=== PATIENT | female | born 1990 | race American Indian/Alaskan Native ===

== ENCOUNTER 2017-02-24 08:54 | Day surgery (SDC) | payer BC, MEDICAID ==
[2017-02-24] MEDS ORDERED: LACTATED RINGERS 1,000 ML IV SCH (09:00)
--- NOTE | 2017-02-24 09:06 | History and Physical Report ---
History of Present Illness Date of examination: 02/24/17 History of present illness: 27 yobf with missed diagnosed by serial ultrasounds and Bhg Past History Past Medical History: hypertension Past Surgical History: ( x2 ), Other (D&C x2) Social history: . denies: smoking, alcohol abuse, prescription drug abuse Family history: hypertension Medications and Allergies Allergies Allergy/AdvReac Type Severity Reaction Status Date / Time No Known Allergies Allergy Verified 02/22/17 17:24 Home Medications Medication Instructions Recorded Confirmed Last Taken Type Lisinopril/Hydrochlorothiazide 1 each PO DAILY 02/22/17 02/22/17 Unknown History [Zestoretic 20-12.5 mg] Exam - Constitutional General appearance: Present: no acute distress - Respiratory Respiratory effort: normal - Cardiovascular Rhythm: regular - Extremities Extremities: pulses symmetrical, No edema - Abdominal General gastrointestinal: Present: soft, non-tender Female genitourinary: Present: normal - Rectal Rectal Exam: deferred - Integumentary Integumentary: Present: clear, warm, dry - Musculoskeletal Musculoskeletal: strength equal bilaterally - Psychiatric Psychiatric: appropriate mood/affect, intact judgment & insight - Neurologic Neurologic: moves all extremities Assessment and Plan - Patient Problems (1) Missed Current Visit: Yes Status: Acute Plan to address problem: Diagnosis explained to patient . Questions answered. Medical and surgical treatment options discussed Patient desires definitive treatment Patient desires D&C Discussed risk of surgery including infection, bleeding and risk of perforating her uterus. Questions answered. Patient understands and desires to proceed (2) Hypertension Current Visit: Yes Status: Acute Qualifiers: Hypertension type: essential hypertension Qualified Code(s): I10 - Essential (primary) hypertension
[2017-02-24 09:42] LABS: Hematocrit 35.9 % (30.3-42.9); Hemoglobin 12.1 gm/dl (10.1-14.3)
--- NOTE | 2017-02-24 09:51 | Anesthesia Consultation ---
Anesthesia Consult and Med Hx Date of service: 02/24/17 - Airway Anesthetic Teeth Evaluation: Good ROM Head & Neck: Adequate Mental/Hyoid Distance: Adequate Mallampati Class: Class II Intubation Access Assessment: Probably Good - Pulmonary Exam CTA: Yes - Cardiac Exam Cardiac Exam: RRR - Pre-Operative Health Status ASA Pre-Surgery Classification: ASA2 Proposed Anesthetic Plan: General - Pulmonary Hx Asthma: No - Cardiovascular System Hx Hypertension: Yes (since 09/2016) - Central Nervous System Hx Seizures: No Hx Psychiatric Problems: No - Endocrine Hx Renal Disease: No Hx Hypothyroidism: No Hx Hyperthyroidism: No - Hematic Hx Anemia: No Hx Sickle Cell Disease: No - Other Systems Hx Alcohol Use: Yes (occas) Hx Cancer: No
--- NOTE | 2017-02-24 09:51 | Anesthesia Day of Surgery ---
Anesthesia Day of Surgery - Day of Surgery Patient Examined: Yes Patient H&P Reviewed: Yes Patient is NPO: Yes
[2017-02-24] MEDS ORDERED: VERSED IV NR (10:00)
[2017-02-24] MEDS ORDERED: PEPCID PO NR (10:00)
[2017-02-24] MEDS ORDERED: METHERGINE IM ONE ×2 (10:27→11:33)
[2017-02-24] MEDS ORDERED: SILVER NITRATE TP ONE ×2 (10:27→11:32)
[2017-02-24] MEDS ORDERED: DIPRIVAN 10 MG/ML IV ONE (10:35)
[2017-02-24] MEDS ORDERED: SUBLIMAZE ONE (10:36)
[2017-02-24] MEDS ORDERED: XYLOCAINE MPF 2% ONE (10:36)
[2017-02-24] MEDS ORDERED: NACL 0.9% IR ONE (10:53)
--- NOTE | 2017-02-24 11:19 | Short Stay Summary ---
Short Stay Documentation - History H&P: dictated Past Medical History: hypertension Past Surgical History: ( x2 ), Other (D&C x2) Social history: , no smoking, no alcohol abuse, no prescription drug abuse - Allergies and Medications Current Medications: Allergies No Known Allergies Allergy (Verified 02/22/17 17:24) Home Medications Medication Instructions Recorded Confirmed Last Taken Type Lisinopril/Hydrochlorothiazide 1 each PO DAILY 02/22/17 02/22/17 Unknown History [Zestoretic 20-12.5 mg] Doxycycline [Vibramycin CAP] 100 mg PO Q12HR #14 capsule 02/24/17 Unknown Rx Ibuprofen [Motrin 600 MG tab] 800 mg PO Q6H PRN #30 tablet 02/24/17 Unknown Rx Methylergonovine [Methergine] 0.2 mg PO Q8HR #7 tablet 02/24/17 Unknown Rx oxyCODONE /ACETAMINOPHEN [Percocet 1 - 2 tab PO Q4H PRN #30 tablet 02/24/17 Unknown Rx 5/325 mg] Active Medications Famotidine (Pepcid) 20 mg PO PREOP NR Stop: 02/24/17 23:59 Last Admin: 02/24/17 10:12 Dose: 20 mg Lactated Ringer's (Lactated Ringers) 1,000 mls @ 150 mls/hr IV DIRECT INDIGO Last Admin: 02/24/17 09:51 Dose: 150 mls/hr Midazolam HCl (Versed) 2 mg IV PREOP NR Stop: 02/24/17 23:59 Last Admin: 02/24/17 10:12 Dose: 2 mg - Physical exam Extremities: pulses symmetrical, No edema - Brief post op/procedure progress note Date of procedure: 02/24/17 (see dictated op note) Condition: stable - Hospital course Hospital course: Patient was admitted underwent the above him procedure without any complications. Patient will be discharged with follow-up in office in 1-2 weeks for postop check. - Disposition Condition at discharge: Good Disposition: DC-01 TO HOME OR SELFCARE - Discharge Diagnoses (1) Missed Status: Acute (2) Hypertension Status: Acute Qualifiers: Hypertension type: essential hypertension Qualified Code(s): I10 - Essential (primary) hypertension Short Stay Discharge Plan Activity: advance as tolerated Diet: regular Follow up with: SAMIRA BURNETT MD [Primary Care Provider] - 7 Days Prescriptions: Methylergonovine [Methergine] 0.2 mg PO Q8HR #7 tablet Ibuprofen [Motrin 600 MG tab] 800 mg PO Q6H PRN #30 tablet PRN Reason: Pain oxyCODONE /ACETAMINOPHEN [Percocet 5/325 mg] 1 - 2 tab PO Q4H PRN #30 tablet PRN Reason: Pain, Moderate Doxycycline [Vibramycin CAP] 100 mg PO Q12HR #14 capsule
[2017-02-24] MEDS ORDERED: MOTRIN PO PRN (11:22)
[2017-02-24] MEDS ORDERED: PERCOCET 5/325 PO PRN (11:23)
--- NOTE | 2017-02-24 11:32 | Post Anesthesia Evaluation ---
- Post Anesthesia Evaluation Patient Participated: Yes Airway Patent: Yes Stable Respiratory Function: Yes Temp > 96.8F: Yes Pain Manageable: Yes Adequeate Hydration: Yes Anesthesia Complications: No Block Receding Appropriately: Not Applicable
[2017-02-24 12:19] VITALS: BP 119/87
[2017-02-24] MEDS ORDERED: ZOFRAN IV NR (12:51)
[2017-02-24] MEDS ORDERED: NACL 0.9% 1000 ML 1,000 ML ONE (12:53)
[2017-02-24] MEDS ORDERED: NACL 0.9% 1000 ML 1,000 ML IV SCH (14:00)
--- NOTE | 2017-03-01 14:27 | Operative Report ---
Operative Report Operative Report: Date of procedure: 02/24/2017 Pre-operative diagnosis: Missed Post-operative diagnosis: Same Procedure name(s): Suction dilatation and curettage Surgeon: Carson Darnell MD Journalism Internship: [] Anesthesia: General EBL: 50 mL Complications: None Findings: A small amount of tissue consistent with products of conception Specimen(s): Uterine contents Procedure: The patient was brought operating room where general anesthesia was induced without difficulty. Patient was placed in dorsal lithotomy position prepped and draped in the usual sterile manner. Rubber catheter was used to empty her bladder. Speculum placed in the vagina. Tenaculum was placed at 12: 00. The cervix was dilated progressively with Hegar dilators. A 10 mm suction catheter was placed through the cervical os. Several passes of the suction catheter removed the uterine contents. General curettage was done with a banjo curettte. On until a gritty sensation was felt throughout the uterine cavity. Further suction with the suction curettage revealed no further products. All instruments were removed patient was hemostatic. She was awakened in the operating room and accompanied to recovery room in good condition.
== END 2017-02-24 09:00 | disposition home or self-care (01) ==
LOC: OR 08:54
PROVIDERS: ATTEND Obstetrics & Gynecology
DX: O02.1 Missed abortion (principal); I10 Essential (primary) hypertension; Z98.890 Other specified postprocedural states; Z79.899 Other long term (current) drug therapy; Z72.89 Other problems related to lifestyle
CPT/HCPCS: 36415; 59820; 84132; 85014; 85018; 88305; J2210; J2250; J2405; J2704; J3010; J7030; J7120

== ENCOUNTER 2017-05-02 12:31 | Emergency (ER) | payer BC, MEDICAID ==
[2017-05-02 13:41] LABS: Basophils % (Auto) 0.7 % (0.0-1.8); Eosinophils % (Auto) 2.7 % (0.0-4.3); Hematocrit 38.9 % (30.3-42.9); Hemoglobin 12.6 gm/dl (10.1-14.3); Mean Corpuscular HGB Conc 32 % (30-34); Mean Corpuscular Hemoglobin 27 pg (28-32); Mean Corpuscular Volume 83 fl (79-97); Platelet Count 241 K/mm3 (140-440); Red Cell Distribution Width 12.5 % (13.2-15.2); White Blood Count 3.8 K/mm3 (4.5-11.0)
[2017-05-02 13:59] LABS: Anion Gap 18 mmol/L; BUN/Creatinine Ratio 10; Blood Urea Nitrogen 6 mg/dL (7-17); Calcium 8.7 mg/dL (8.4-10.2); Carbon Dioxide 22 mmol/L (22-30); Chloride 104.2 mmol/L (98-107); Glucose 84 mg/dL (65-100); Potassium 3.8 mmol/L (3.6-5.0); Sodium 140 mmol/L (137-145)
--- NOTE | 2017-05-02 23:56 | Emergency Department Report ---
ED General Adult HPI - General Chief complaint: Chest Pain Stated complaint: HIGH BP/HOT FLASHES Time Seen by Provider: 05/02/17 23:44 Source: patient, RN notes reviewed, old records reviewed Mode of arrival: Ambulatory Limitations: No Limitations - History of Present Illness Initial comments: This is a 27-year-old female, the patient is previously known to this provider. She is a past medical history of hypertension, and can't remember the name of her primary care doctor. She has an upper extremity implanon control implant. The patient presents to the ER with complaint of "fullness" and "heat " in her bilateral ears, a sensation of feeling "shaky", and "heavy breathing." There is no leg pain, there is no leg swelling, no recent trips greater than 4 hours, and no recent hospital admissions. The patient endorses compliance with her medications, denies aspirin use and denies cocaine use. There is no family history of heart disease, DVT or pulmonary embolus that she is aware of. She mentioned left-sided central chest pressure/"twitching", which did not radiates to the back, arms and neck, was not associated with vomiting, shortness of breath or diaphoresis. Her symptoms started hours ago, they have been resolved for hours, and he did not have exacerbating or relieving factors. -: Gradual Location: chest Severity scale (0 -10): 0 Improves with: none Worsens with: none Associated Symptoms: chest pain, loss of appetite, malaise, weakness. denies: confusion, cough, diaphoresis, fever/chills, shortness of breath, syncope - Related Data Home Medications Medication Instructions Recorded Confirmed Last Taken Lisinopril/Hydrochlorothiazide 1 each PO DAILY 02/22/17 02/22/17 Unknown [Zestoretic 20-12.5 mg] Previous Rx's Medication Instructions Recorded Last Taken Type Doxycycline [Vibramycin CAP] 100 mg PO Q12HR #14 capsule 02/24/17 Unknown Rx Ibuprofen [Motrin 600 MG tab] 800 mg PO Q6H PRN #30 tablet 02/24/17 Unknown Rx Methylergonovine [Methergine] 0.2 mg PO Q8HR #7 tablet 02/24/17 Unknown Rx oxyCODONE /ACETAMINOPHEN [Percocet 1 - 2 tab PO Q4H PRN #30 tablet 02/24/17 Unknown Rx 5/325 mg] Allergies Allergy/AdvReac Type Severity Reaction Status Date / Time No Known Allergies Allergy Verified 02/22/17 17:24 ED Review of Systems ROS: Stated complaint: HIGH BP/HOT FLASHES Other details as noted in HPI Constitutional: malaise, weakness. denies: fever ENT: congestion. denies: throat pain Respiratory: denies: cough Cardiovascular: chest pain Gastrointestinal: denies: vomiting Genitourinary: denies: dysuria Musculoskeletal: arthralgia, myalgia Neurological: weakness Psychiatric: anxiety ED Past Medical Hx - Past Medical History Previous Medical History?: Yes Hx Hypertension: Yes (since 09/2016) Hx Diabetes: No Hx Deep Vein Thrombosis: No Hx Renal Disease: No Hx Sickle Cell Disease: No Hx Headaches / Migraines: Yes (migraines) Hx Seizures: No Hx Asthma: No Hx HIV: No - Surgical History Past Surgical History?: Yes Additional Surgical History: x 2. d&c - Feb 2017 - Social History Smoking Status: Never Smoker Substance Use Type: Alcohol - Medications Home Medications: Home Medications Medication Instructions Recorded Confirmed Last Taken Type Lisinopril/Hydrochlorothiazide 1 each PO DAILY 02/22/17 02/22/17 Unknown History [Zestoretic 20-12.5 mg] Doxycycline [Vibramycin CAP] 100 mg PO Q12HR #14 capsule 02/24/17 Unknown Rx Ibuprofen [Motrin 600 MG tab] 800 mg PO Q6H PRN #30 tablet 02/24/17 Unknown Rx Methylergonovine [Methergine] 0.2 mg PO Q8HR #7 tablet 02/24/17 Unknown Rx oxyCODONE /ACETAMINOPHEN [Percocet 1 - 2 tab PO Q4H PRN #30 tablet 02/24/17 Unknown Rx 5/325 mg] ED Physical Exam - General Limitations: No Limitations General appearance: alert, in no apparent distress - Head Head exam: Present: atraumatic, normocephalic - Eye Eye exam: Present: normal appearance, PERRL, EOMI. Absent: nystagmus - ENT ENT exam: Present: normal exam, normal orophraynx, mucous membranes moist, TM's normal bilaterally, normal external ear exam - Neck Neck exam: Present: normal inspection, full ROM. Absent: tenderness, meningismus - Respiratory Respiratory exam: Present: normal lung sounds bilaterally. Absent: respiratory distress, wheezes, rales, rhonchi, stridor, chest wall tenderness, accessory muscle use, decreased breath sounds, prolonged expiratory - Cardiovascular Cardiovascular Exam: Present: regular rate, normal rhythm, normal heart sounds. Absent: bradycardia, tachycardia, irregular rhythm, systolic murmur, diastolic murmur, rubs, gallop - GI/Abdominal GI/Abdominal exam: Present: soft, normal bowel sounds. Absent: distended, tenderness, guarding, rebound, rigid, pulsatile mass - Extremities Exam Extremities exam: Present: normal inspection, full ROM, normal capillary refill. Absent: pedal edema, joint swelling, calf tenderness - Back Exam Back exam: Present: normal inspection, full ROM. Absent: tenderness, CVA tenderness (R), CVA tenderness (L), muscle spasm, paraspinal tenderness, vertebral tenderness - Neurological Exam Neurological exam: Present: alert, oriented X3, normal gait, other (Extraocular movements intact. Tongue midline. No facial droop. Facial sensation intact to light touch in the V1, V2, V3 distribution bilaterally. 5 and 5 strength in 4 extremities.. Sensation is intact to light touch in 4 extremities.). Absent : motor sensory deficit - Psychiatric Psychiatric exam: Present: anxious - Skin Skin exam: Present: warm, dry, intact, normal color. Absent: rash ED Course Vital Signs 05/02/17 05/02/17 05/02/17 13:06 22:44 23:00 Temperature 98.6 F Pulse Rate 104 H 84 64 Respiratory 18 19 14 Rate Blood Pressure 148/106 146/97 Blood Pressure [Left] O2 Sat by Pulse 100 99 Oximetry 05/02/17 23:28 Temperature 97.8 F Pulse Rate 67 Respiratory 16 Rate Blood Pressure Blood Pressure 145/101 [Left] O2 Sat by Pulse 100 Oximetry ED Medical Decision Making - Lab Data Result diagrams: 05/02/17 13:18 05/02/17 13:18 Vital Signs 05/02/17 05/02/17 13:06 23:28 Temperature 98.6 F 97.8 F Pulse Rate 104 H 67 Respiratory 18 16 Rate Blood Pressure 148/106 Blood Pressure 145/101 [Left] O2 Sat by Pulse 100 100 Oximetry Lab Results 05/02/17 05/02/17 05/02/17 Range/Units 13:18 13:18 13:18 WBC 3.8 L (4.5-11.0) K/mm3 RBC 4.70 (3.65-5.03) M/mm3 Hgb 12.6 (10.1-14.3) gm/dl Hct 38.9 (30.3-42.9) % MCV 83 (79-97) fl MCH 27 L (28-32) pg MCHC 32 (30-34) % RDW 12.5 L (13.2-15.2) % Plt Count 241 (140-440) K/mm3 Lymph % (Auto) 35.7 H (13.4-35.0) % [place] % (Auto) 4.1 (0.0-7.3) % Eos % (Auto) 2.7 (0.0-4.3) % Baso % (Auto) 0.7 (0.0-1.8) % Lymph # 1.4 (1.2-5.4) K/mm3 [place] # 0.2 (0.0-0.8) K/mm3 Eos # 0.1 (0.0-0.4) K/mm3 Baso # 0.0 (0.0-0.1) K/mm3 Seg Neutrophils % 56.8 (40.0-70.0) % Seg Neutrophils # 2.2 (1.8-7.7) K/mm3 Sodium 140 (137-145) mmol/L Potassium 3.8 (3.6-5.0) mmol/L Chloride 104.2 (98-107) mmol/L Carbon Dioxide 22 (22-30) mmol/L Anion Gap 18 mmol/L BUN 6 L (7-17) mg/dL Creatinine 0.6 L (0.7-1.2) mg/dL Estimated GFR > 60 ml/min BUN/Creatinine Ratio 10 % Glucose 84 (65-100) mg/dL Calcium 8.7 (8.4-10.2) mg/dL Troponin T < 0.010 (0.00-0.029) ng/mL HCG, Qual Negative (Negative) 05/02/17 05/02/17 Range/Units 15:53 19:13 WBC (4.5-11.0) K/mm3 RBC (3.65-5.03) M/mm3 Hgb (10.1-14.3) gm/dl Hct (30.3-42.9) % MCV (79-97) fl MCH (28-32) pg MCHC (30-34) % RDW (13.2-15.2) % Plt Count (140-440) K/mm3 Lymph % (Auto) (13.4-35.0) % [place] % (Auto) (0.0-7.3) % Eos % (Auto) (0.0-4.3) % Baso % (Auto) (0.0-1.8) % Lymph # (1.2-5.4) K/mm3 [place] # (0.0-0.8) K/mm3 Eos # (0.0-0.4) K/mm3 Baso # (0.0-0.1) K/mm3 Seg Neutrophils % (40.0-70.0) % Seg Neutrophils # (1.8-7.7) K/mm3 Sodium (137-145) mmol/L Potassium (3.6-5.0) mmol/L Chloride (98-107) mmol/L Carbon Dioxide (22-30) mmol/L Anion Gap mmol/L BUN (7-17) mg/dL Creatinine (0.7-1.2) mg/dL Estimated GFR ml/min BUN/Creatinine Ratio % Glucose (65-100) mg/dL Calcium (8.4-10.2) mg/dL Troponin T < 0.010 < 0.010 (0.00-0.029) ng/mL HCG, Qual (Negative) - EKG Data -: EKG Interpreted by Me - EKG Data 05/03/17 00:34 EKG #1. Normal sinus, 86 bpm, normal intervals, normal axis, low voltage, not morphologically consistent with ST elevation myocardial infarction. Appears unchanged from prior from July 2014. Repeat EKG unremarkable and unchanged. - Radiology Data Radiology results: image reviewed interpreted by me: X-ray of the chest is negative for acute disease - Medical Decision Making Differential diagnosis: Anxiety, acute coronary syndrome, anemia, , pneumonia, pneumothorax Assessment and plan: 27-year-old female with a number of atypical symptoms, low risk by DIEGO score, low risk by heart score, no risk by well's criteria, EKG unchanged 2, troponin negative, x-ray negative, patient and family understand that the patient is at low risk for major adverse cardiac event, laboratory studies do not corroborate the diagnosis of anemia or , x-ray of the chest does not suggest pneumonia or pneumothorax, and patient is suitable to follow-up with an outpatient primary care doctor or supervisor grower at this time. Her tachycardia is resolved, patient resting quite comfortably in her room, and she'll be discharged with instructions to follow-up. Critical care attestation.: If time is entered above; I have spent that time in minutes in the direct care of this critically ill patient, excluding procedure time. ED Disposition Clinical Impression: Chest pressure Disposition: DC-01 TO HOME OR SELFCARE Is pt being admited?: No Does the pt Need Aspirin: No Condition: Stable Instructions: Dyspnea (ED) Additional Instructions: Continue current outpatient medications. Follow up with a primary care doctor or supervisor grower within the next 3-5 days. Return to the ER right away with new pain, worsened pain, migration of pain, fevers, chills, lethargy, irritability, projectile vomiting, change in mental status, vomiting blood, defecating blood, loss of consciousness. Referrals: PRIMARY CARE, [Primary Care Provider] - 3-5 Days [facility] [Provider Group] - 3-5 Days [facility] [Provider Group] - 3-5 Days [facility] [Provider Group] - 3-5 Days Forms: Work/School Release Form(ED)
[2017-05-03 02:08] VITALS: BP 146/97
--- NOTE | 2017-05-03 08:03 | XRay Report ---
ROUTINE CHEST, TWO VIEWS: HISTORY: chest pain. The trachea, heart, mediastinal contour, lung pride and bony thorax are unremarkable. IMPRESSION: Unremarkable chest x-ray.
== END 2017-05-03 01:08 | disposition home or self-care (01) ==
LOC: ED 12:31
DX: R07.9 Chest pain, unspecified (principal); R53.1 Weakness; I10 Essential (primary) hypertension; G43.909 Migraine, unspecified, not intractable, without status migrainosus
CPT/HCPCS: 36415; 71020; 80048; 84484; 84703; 85025; 93005; 93010

== ENCOUNTER 2018-09-12 05:54 | Inpatient (IN) | payer BC, MEDICAID ==
[2018-09-12] MEDS ORDERED: LACTATED RINGERS 1,000 ML ONE ×3 (06:03→08:23)
[2018-09-12] MEDS ORDERED: LACTATED RINGERS 1,000 ML IV SCH (07:00)
[2018-09-12 07:01] LABS: Basophils % (Auto) 0.5 % (0.0-1.8); Eosinophils # (Auto) 0.1 K/mm3 (0.0-0.4); Hematocrit 37.1 % (30.3-42.9); Hemoglobin 12.5 gm/dl (10.1-14.3); Lymphocytes # (Auto) 1.4 K/mm3 (1.2-5.4); Lymphocytes % (Auto) 26.3 % (13.4-35.0); Mean Corpuscular HGB Conc 34 % (30-34); Mean Corpuscular Volume 85 fl (79-97); Monocytes # (Auto) 0.3 K/mm3 (0.0-0.8); Monocytes % (Auto) 5.4 % (0.0-7.3); Platelet Count 198 K/mm3 (140-440); Red Blood Count 4.37 M/mm3 (3.65-5.03); Red Cell Distribution Width 15.1 % (13.2-15.2)
--- NOTE | 2018-09-12 07:21 | Anesthesia Consultation ---
Anesthesia Consult and Med Hx Date of service: 09/12/18 - Airway Anesthetic Teeth Evaluation: Good ROM Head & Neck: Adequate Mental/Hyoid Distance: Adequate Mallampati Class: Class III Intubation Access Assessment: Probably Good - Pulmonary Exam CTA: Yes - Cardiac Exam Cardiac Exam: RRR - Pre-Operative Health Status ASA Pre-Surgery Classification: ASA3 Proposed Anesthetic Plan: Spinal - Pulmonary Hx Smoking: No Hx Asthma: No Hx Respiratory Symptoms: No SOB: No COPD: No Hx Pneumonia: No Hx Sleep Apnea: No - Cardiovascular System Hx Hypertension: Yes (chronic, no medications during ) Hx Coronary Artery Disease: No Hx Heart Attack/AMI: No Hx Angina: No Hx Percutaneous Transluminal Coronary Angioplasty (PTCA): No Hx Cardia Arrhythmia: No Hx Pacemaker: No Hx Internal Defibrillator: No Hx Valvular Heart Disease: No Hx Heart Murmur: No Hx Peripheral Vascular Disease: No - Central Nervous System Hx Neuromuscular Disorder: No Hx Seizures: No CVA: No Hx Back Pain: No Hx Psychiatric Problems: No - Gastrointestinal Hx Ulcer: No Hx Gastroesophageal Reflux Disease: No - Endocrine Hx Renal Disease: No Hx End Stage Renal Disease: No Hx Cirrhosis: No Hx Liver Disease: No Hx Insulin Dependent Diabetes: No Hx Non-Insulin Dependent Diabetes: No Hx Thyroid Disease: No Hx Hypothyroidism: No Hx Hyperthyroidism: No - Hematic Hx Anemia: No Hx Sickle Cell Disease: No - Other Systems Hx Alcohol Use: No Hx Cancer: No Hx Obesity: No
--- NOTE | 2018-09-12 07:22 | Anesthesia Day of Surgery ---
Anesthesia Day of Surgery - Day of Surgery Patient Examined: Yes Patient H&P Reviewed: Yes Patient is NPO: Yes Beta Blockers: No Cardiac Clearance: No Pulmonary Clearance: No Kishore's Test: N/A
--- NOTE | 2018-09-12 07:23 | Progress Note ---
Subjective Date of service: 09/12/18 Principal diagnosis: repeat csection Objective - Constitutional Vitals: Vital Signs - 12hr 09/12/18 09/12/18 09/12/18 06:43 06:50 06:57 Temperature 98.6 F Pulse Rate 76 82 Respiratory 20 Rate Blood Pressure 137/91 135/93 - Labs CBC & Chem 7: 09/12/18 06:15
[2018-09-12] MEDS ORDERED: SENSORCAINE/DEXTR 0.75-8.25% INFILTRATI ONE (07:30)
[2018-09-12] MEDS ORDERED: ASTRAMORPH PF 10MG/10ML ONE (07:31)
--- NOTE | 2018-09-12 07:31 | History and Physical Report ---
History of Present Illness Date of examination: 09/12/18 Date of admission: 09/12/18 05:54 Chief complaint: Previous History of present illness: 28y/o @ 37+6 weeks is scheduled for a repeat low transverse delivery and bilateral salpingectomy. The patient initiated care at [facility] during the first trimester of . Her course has been complicated by chronic hypertension and now recently intrauterine growth restriction. Per recommendation of maternal medicine, the patient is to be delivered prior to 38 weeks. The patient denies contractions, vaginal bleeding, or leakage of fluid. She has undesired fertility and has elected to undergo permanent sterilization. Past History Past Medical History: hypertension Past Surgical History: section Social history: - Obstetrical History Expected Date of Delivery: 09/27/18 Actual Gestation: 37 Week(s) 6 Day(s) : 6 Para: 2 Hx # Term Pregnancies: 2 Number of Pregnancies: 0 Spontaneous Abortions: 1 Induced : 2 Number of Living Children: 2 Medications and Allergies Allergies Allergy/AdvReac Type Severity Reaction Status Date / Time No Known Allergies Allergy Verified 02/22/17 17:24 Home Medications Medication Instructions Recorded Confirmed Last Taken Type Lisinopril/Hydrochlorothiazide 1 each PO DAILY 02/22/17 02/22/17 Unknown History [Zestoretic 20-12.5 mg] Doxycycline [Vibramycin CAP] 100 mg PO Q12HR #14 capsule 02/24/17 Unknown Rx Ibuprofen [Motrin 600 MG tab] 800 mg PO Q6H PRN #30 tablet 02/24/17 Unknown Rx Methylergonovine [Methergine] 0.2 mg PO Q8HR #7 tablet 02/24/17 Unknown Rx oxyCODONE /ACETAMINOPHEN [Percocet 1 - 2 tab PO Q4H PRN #30 tablet 02/24/17 Unknown Rx 5/325 mg] Active Meds: Active Medications Citric Acid/Sodium Citrate (Bicitra) 30 ml PO ONCE ONE Stop: 09/12/18 06:52 Famotidine (Pepcid) 20 mg IV ONCE ONE Stop: 09/12/18 06:52 Cefazolin Sodium (Ancef/Sterile Water 2 Gm/20 Ml) 2 gm in 20 mls @ 80 mls/hr IV PREOP NR; Protocol Lactated Ringer's (Lactated Ringers) 1,000 mls @ 2,250 mls/hr IV PREOP INDIGO Stop: 09/13/18 07:27 Oxytocin/Sodium Chloride (Pitocin/Ns 20 Unit/1000ml Drip) 20 units in 1,000 mls @ 0 mls/hr IV TITR INDIGO Metoclopramide HCl (Reglan) 10 mg IV ONCE ONE Stop: 09/12/18 06:52 Review of Systems All systems: negative Genitourinary: no vaginal bleeding, no leakage of fluid, no contractions - Vital Signs Vital signs: Vital Signs Pulse BP 76 137/91 09/12/18 06:43 09/12/18 06:43 Temp Pulse Resp BP Pulse Ox 98.6 F 82 20 135/93 09/12/18 06:50 09/12/18 06:57 09/12/18 06:50 09/12/18 06:57 - Physical Exam Breasts: Positive: deferred Cardiovascular: Regular rate Lungs: Positive: Clear to auscultation Abdomen: Positive: normal appearance Results Result Diagrams: 09/12/18 06:15 All other labs normal. Assessment and Plan - Patient Problems (1) Chronic hypertension affecting Current Visit: Yes Status: Acute Plan to address problem: Patient is scheduled for a repeat low transverse delivery and bilateral salpingectomy (2) Previous delivery affecting Current Visit: Yes Status: Acute (3) Intrauterine growth restriction, antepartum Current Visit: Yes Status: Acute
--- NOTE | 2018-09-12 07:33 | Procedure Note ---
OB Delivery Note - Delivery Date of Delivery: 09/12/18 Surgeon: KARYNA CANTOR Estimated blood loss: other (900 mL) - Section Preop diagnosis: repeat Postop diagnosis: same section procedure: section, repeat low transverse, bilateral tubal ligation Disposition: PACU Complications: none - Infant A at 1 minute: 8 at 5 minutes: 9 Infant Gender: Female (weight 6 lbs. 1 oz.)
--- NOTE | 2018-09-12 07:34 | Operative Report ---
Operative Report Operative Report: Date of surgery: 09/12/2018 Preoperative diagnosis: at 37+6 weeks; chronic hypertension; intrauterine growth restriction; undesired fertility Postoperative diagnosis: Same as above Procedure: Repeat low transverse delivery and bilateral salpingectomy Surgeon: Saira Chapin M.D. Anesthesia: Regional Estimated blood loss: 900 mL Findings: Liveborn female infant with Apgars of 8 and 9 weight 6 lbs. 1 oz. Indications: 28-year-old at 37+6 weeks with antepartum course is c omplicated by worsening chronic hypertension and recently intrauterine growth restriction. It is the recommendation of maternal medicine that the patient proceed with delivery. Procedure: The patient was taken to the operating room and given regional anesthesia without complication. She was prepped and draped in a normal sterile fashion. A Pfannenstiel skin incision was made down to layer the fascia which was nicked in the midline extended laterally with the Bovie cautery. The superior aspect of the rectus fascia was grasped with Anat clamps x2 and the rectus muscles off sharply. This was done in inferior fashion as well. The rectus muscle midline and peritoneum entered bluntly. An Pablo retractor was then inserted. A bladder blade was placed. The vesicouterine peritoneum was then entered sharply with Metzenbaum scissors. A bladder flap was created digitally. A low transverse uterine incision was then made and extended digitally. There was clear fluid upon entry into the uterine cavity. The head was delivered through the incision with fundal pressure. The cord was clamped and cut x2 and infant was passed off to pediatrics. The placenta was then manually extracted. The uterus was then exteriorized and cleared of clots and debris. The uterine incision was then closed in a running locked fashion with 0 Vicryl additional imbricating stitch was applied for 2 layer closure. Attention was then turned to the patient's tubes where a Karla clamp was placed across the mesosalpinx on the patient's right fallopian tube. The entire fallopian tube was then excised. Mesosalpinx was suture-ligated with 3-0 Vicryl. This was done on the contralateral side as well. The site was hemostatic at the conclusion. The posterior cul-de-sac was then copiously irrigated. The uterus was replaced back into the abdomen and pelvis were the gutters were then irrigated. The Pablo retractor was then removed. Surgicel was placed over the uterine incision. The peritoneum was then reapproximated with 3-0 Vicryl incorporating the rectus muscle. The fascia was then closed with 0 Vicryl in a running fashion. The skin was then reapproximated with 3-0 Monocryl on a Esteban needle subcuticular fashion. Steri-Strips to place across the incision and a Crede procedures performed at the end of the surgery. A pressure dressing was applied to the incision. The surgery productive of a liveborn female with Apgars of and 9 weight 6 lbs. 1 oz. The patient was taken to the recovery room in stable condition. All sponge laps and needle counts correct x2.
[2018-09-12] MEDS ORDERED: MILK OF MAGNESIA PO PRN (07:35)
[2018-09-12] MEDS ORDERED: TUCKS PAD TP PRN (07:35)
[2018-09-12] MEDS ORDERED: NARCAN 0.4 MG/1 ML IV PRN ×2 (07:35→09:31)
[2018-09-12] MEDS ORDERED: TYLENOL PO PRN (07:35)
[2018-09-12] MEDS ORDERED: LANSINOH TP PRN (07:35)
[2018-09-12] MEDS ORDERED: REGLAN IV NR (08:00)
[2018-09-12] MEDS ORDERED: SODIUM CHLORIDE FLUSH SYRINGE 10 ML IV NR ×2 (08:00→10:00)
[2018-09-12] MEDS ORDERED: PITOCin/NS 20 UNIT/1000ML DRIP 20 UNITS/1,000 ML BAG IV SCH ×2 (08:00)
[2018-09-12] MEDS ORDERED: BICITRA PO NR (08:00)
[2018-09-12] MEDS ORDERED: D5LR 1,000 ML IV SCH (08:00)
[2018-09-12] MEDS ORDERED: ANCEF/STERILE WATER 2 GM/20 ML 2 GM/20 ML SYRINGE IV NR (08:00)
[2018-09-12] MEDS ORDERED: PEPCID IV NR (08:00)
[2018-09-12] MEDS ORDERED: VERSED IV ONE (08:38)
[2018-09-12] MEDS ORDERED: SUBLIMAZE ONE ×2 (08:40→08:53)
[2018-09-12] MEDS ORDERED: NACL 0.9% IR ONE (08:47)
[2018-09-12] MEDS ORDERED: WATER FOR IRRIG STERILE IR ONE (08:47)
[2018-09-12] MEDS ORDERED: KETALAR ONE (08:52)
--- NOTE | 2018-09-12 09:26 | Post Anesthesia Evaluation ---
- Post Anesthesia Evaluation Patient Participated: Yes Airway Patent: Yes Stable Respiratory Function: Yes Nausea/Vomiting: No Temp > 96.8F: Yes Pain Manageable: Yes Adequeate Hydration: Yes Anesthesia Complications: No Block Receding Appropriately: Yes Patient on Ventilator: No
[2018-09-12] MEDS ORDERED: ZOFRAN IV PRN (09:31)
[2018-09-12] MEDS ORDERED: TORADOL IV PRN (09:33)
[2018-09-12] MEDS ORDERED: DILAUDID ONE (10:12)
[2018-09-12] MEDS: TORADOL IV PRN ×2 (10:15→21:57)
[2018-09-12] MEDS ORDERED: DILAUDID IV PRN (10:19)
[2018-09-12 10:28] LABS: Hepatitis C Virus Antibody Non-Reactive (NonReactive)
[2018-09-12] MEDS: BENADRYL IV PRN ×2 (16:25→21:58)
[2018-09-12 20:48] LABS: Hematocrit 30.4 % (30.3-42.9); Hemoglobin 10.1 gm/dl (10.1-14.3)
[2018-09-13] MEDS: BENADRYL IV PRN (05:30)
[2018-09-13] MEDS: IBUPROFEN PO PRN ×3 (05:31→18:19)
--- NOTE | 2018-09-13 07:34 | Progress Note ---
Assessment and Plan - Patient Problems (1) Chronic hypertension affecting Current Visit: Yes Status: Acute Plan to address problem: routine postop care consider discharge home tomorrow (2) Previous delivery affecting Current Visit: Yes Status: Acute (3) Intrauterine growth restriction, antepartum Current Visit: Yes Status: Acute Subjective - Subjective Date of service: 09/13/18 Principal diagnosis: repeat csection Interval history: Patient reports feeling tired. Manning has been removed. Tolerating clear diet. Patient reports: appetite normal, voiding normally, pain well controlled [place]: doing well Objective - Vital Signs Latest vital signs: Vital Signs Temp Pulse Resp BP BP Pulse Ox 09/13/18 05:31 18 09/13/18 05:00 98.1 F 20 123/76 98 09/13/18 01:20 98.4 F 85 20 120/71 98 09/12/18 21:57 18 09/12/18 20:59 99.3 F 90 20 126/86 99 09/12/18 15:38 98.1 F 76 18 130/88 100 09/12/18 11:00 97.6 F 68 18 128/88 100 09/12/18 10:45 18 09/12/18 10:30 97.6 F 77 18 131/98 100 09/12/18 10:15 18 09/12/18 10:00 97.7 F 64 16 131/93 100 09/12/18 09:40 73 16 129/93 98 09/12/18 09:35 66 17 136/88 99 09/12/18 09:30 97.6 F 74 20 116/92 99 Intake and Output 09/12/18 09/13/18 09/13/18 22:59 06:59 14:59 Intake Total 720 360 Output Total 600 800 Balance 120 -440 Intake: Oral 360 360 Intake, Free Water 360 Output: Urine 600 800 Indwelling Catheter 600 Void 800 Other: Total, Intake Amount 360 360 Total, Output Amount 600 800 # Voids Void 1 - Exam Incision: Present: dressed
[2018-09-13] MEDS: PERCOCET 5/325 PO PRN ×3 (11:07→22:58)
[2018-09-14] MEDS: IBUPROFEN PO PRN ×3 (00:24→13:38)
[2018-09-14] MEDS: PERCOCET 5/325 PO PRN ×2 (07:52→13:38)
--- NOTE | 2018-09-14 08:20 | Progress Note ---
Assessment and Plan A/P POD2 s/p repeat csec doing well vss hgb 12-10 d/c home with f/u in 2 weeks for postop check Subjective - Subjective Date of service: 09/14/18 Principal diagnosis: repeat csection Patient reports: appetite normal, voiding normally, pain well controlled, flatus, ambulating normally [place]: doing well Objective - Vital Signs Latest vital signs: Vital Signs Temp Pulse Resp BP BP Pulse Ox 09/14/18 00:18 98.4 F 81 20 124/93 100 09/13/18 22:58 18 09/13/18 14:43 98.7 F 89 18 120/82 100 Intake and Output 09/13/18 09/14/18 09/14/18 23:59 07:59 15:59 Intake Total 240 Balance 240 Intake: Oral 240 Other: Total, Intake Amount 240 # Voids Void 1 - Exam Breasts: Present: normal Cardiovascular: Present: Regular rate, Normal S1 Lungs: Present: Clear to auscultation, Normal air movement Abdomen: Present: normal appearance, soft, normal bowel sounds. Absent: distention, tenderness, guarding Uterus: Present: normal, firm, fundal height below umbilicus. Absent: bogginess, tenderness Extremities: Present: normal Deep Tendon Reflex Grade: Normal +2 Incision: Present: normal, dry, intact
--- NOTE | 2018-09-14 08:21 | Progress Note ---
Assessment and Plan A/P POD2 s/p repeat csec doing well vss hgb 12-10 d/c home with f/u in 2 weeks for postop check Subjective - Subjective Date of service: 09/14/18 Principal diagnosis: repeat csection Patient reports: appetite normal, voiding normally, pain well controlled, flatus, ambulating normally [place]: doing well Objective - Vital Signs Latest vital signs: Vital Signs Temp Pulse Resp BP BP Pulse Ox 09/14/18 00:18 98.4 F 81 20 124/93 100 09/13/18 22:58 18 09/13/18 14:43 98.7 F 89 18 120/82 100 Intake and Output 09/13/18 09/14/18 09/14/18 23:59 07:59 15:59 Intake Total 240 Balance 240 Intake: Oral 240 Other: Total, Intake Amount 240 # Voids Void 1 - Exam Breasts: Present: normal Cardiovascular: Present: Regular rate, Normal S1 Lungs: Present: Clear to auscultation, Normal air movement Abdomen: Present: normal appearance, soft, normal bowel sounds. Absent: distention, tenderness, guarding Uterus: Present: normal, firm, fundal height below umbilicus. Absent: bogginess, tenderness Extremities: Present: normal Incision: Present: normal, dry, intact
--- NOTE | 2018-09-14 08:22 | Discharge Summary ---
Providers - Providers Date of Admission: 09/12/18 05:54 Date of discharge: 09/14/18 Attending physician: LATOYA MANUEL MD Primary care physician: LATOYA MANUEL MD Hospitalization Reason for admission: IUP at term Delivery: Procedure: repeat low transverse Episiotomy: none Laceration: none Incision: normal, dry, intact Other procedures: none Discharge diagnosis: IUP at term delivered [place] baby: female Hospital course: Patient came in to have repeat csec. did well Postop and d/c home pod 2 with f/u in 2 weeks Condition at discharge: Good Disposition: DC-01 TO HOME OR SELFCARE Plan - Discharge Medications Prescriptions: Ibuprofen [Motrin] 800 mg PO Q8HR PRN #60 tablet PRN Reason: Pain , Severe (7-10) oxyCODONE /ACETAMINOPHEN [Percocet 5/325] 1 tab PO Q6HR PRN #30 tablet PRN Reason: Pain - Provider Discharge Summary Additional instructions: [] Smoking cessation referral if applicable(refer to patient education folder for contact #) [] Refer to [facility]'s [facility] Booklet Call your doctor immediately for: * Fever > 100.5 * Heavy vaginal bleeding ( >1 pad per hour) * Severe persistent headache * Shortness of breath * Reddened, hot, painful area to leg or breast * Drainage or odor from incision. * Keep incision clean and dry at all times and follow doctor's instructions regarding bathing/showering - Follow up plan Follow up: LATOYA MANUEL MD [Primary Care Provider] - 7 Days
[2018-09-14] MEDS ORDERED: CITRATE OF MAGNESIA PO ONE (10:00)
[2018-09-14 17:29] VITALS: BP 133/87
== END 2018-09-14 15:45 | disposition home or self-care (01) | DRG 784 ==
LOC: APU 05:54 → OB 11:07
PROVIDERS: ADMIT Obstetrics & Gynecology; ATTEND Obstetrics & Gynecology
PROC: 10D00Z1 Extraction of Products of Conception, Low, Open Approach (ICD-10-PCS; principal; 2018-09-12)
PROC: 0UB70ZZ Excision of Bilateral Fallopian Tubes, Open Approach (ICD-10-PCS; 2018-09-12)
DX: O34.211 Maternal care for low transverse scar from previous cesarean delivery (principal); O10.92 Unspecified pre-existing hypertension complicating childbirth; O36.5930 Maternal care for other known or suspected poor fetal growth, third trimester, not applicable or unspecified; Z3A.37 37 weeks gestation of pregnancy; Z37.0 Single live birth; Z79.899 Other long term (current) drug therapy
CPT/HCPCS: 36415; 85014; 85018; 85025; 85660; 86592; 86706; 86762; 86803; 86850; 86900; 86901; 87806; 88302; G0378; J0690; J1170; J1200; J1885; J2250; J2274; J2590; J2765; J3010; J7120; J7121